=== PATIENT | female | born 1930 | race Caucasian/White ===

== ENCOUNTER 2017-11-08 10:01 | Emergency (ER) | payer MEDICARE, BC ==
[~2017-11-08] VITALS: Ht 165.1 cm; Wt 66.2 kg
[2017-11-08] MEDS ORDERED: DIPH,PERTUSS(ACELL),TET VAC/PF 0.5 ML IM-VACC ONE ×2 (10:41→11:00)
[2017-11-08] MEDS ORDERED: LIDOCAINE-MPF 1%, 5ML INFIL ONE (11:00)
[2017-11-08] MEDS ORDERED: BACITRACIN ZINC OINT 500U/GM, 0.9 GM ONE (12:30)
[2017-11-08 14:18] VITALS: BP 195/99
== END 2017-11-08 14:20 | disposition home or self-care (01) ==
LOC: ED 13:07
DX: S01.21XA Laceration without foreign body of nose, initial encounter (principal); I10 Essential (primary) hypertension; Z99.81 Dependence on supplemental oxygen; W01.0XXA Fall on same level from slipping, tripping and stumbling without subsequent striking against object, initial encounter; Y93.89 Activity, other specified; Y99.8 Other external cause status; Y92.89 Other specified places as the place of occurrence of the external cause
CPT/HCPCS: 12052; 70450; 70486; 90471; 90715

== ENCOUNTER 2017-11-15 09:04 | Emergency (ER) | payer MEDICARE, BC ==
[~2017-11-15] VITALS: Ht 165.1 cm; Wt 65.0 kg
[2017-11-15 09:07] VITALS: BP 137/70
== END 2017-11-15 10:20 | disposition home or self-care (01) ==
LOC: ED 10:00
DX: Z48.02 Encounter for removal of sutures (principal); I10 Essential (primary) hypertension
CPT/HCPCS: 99281